=== PATIENT | female | born 1960 | race Asian ===

== ENCOUNTER 2017-08-12 08:34 | Emergency (ER) | payer OTHER ==
[~2017-08-12] VITALS: Ht 172.7 cm; Wt 54.4 kg
--- NOTE | 2017-08-12 09:04 | ED GI/GU/ABDOMINAL COMPLAINT ---
History of Present Illness General Chief Complaint: Abdominal Pain/Flank Pain Stated Complaint: LBP RADIATING TO ABD/RT SIDE Source: patient Exam Limitations: no limitations Vital Signs & Intake/Output Vital Signs & Intake/Output Vital Signs Date Time Temp Pulse Resp B/P B/P Pulse O2 O2 Flow FiO2 Mean Ox Delivery Rate 08/12 1325 98.3 68 20 122/68 99 Room Air 08/12 1045 98.0 65 18 117/67 100 Room Air 08/12 0837 97.8 78 18 133/94 98 Room Air Allergies Coded Allergies: No Known Allergies (08/12/17) Triage Note: 57 YEAR OLD FEMALE TO ER WITH COMPLAINTS OF R SIDE FLANK PAIN THAT RADIATES INTO HER ABD THAT HAS BEEN CONSTANT SINCE FRIDAY, TAKES ALEVE WIWTH LITTLE RELIEF, DENIES N/V/D/URINARY SYMPTOMS. PT HAS HISTORY OF STOMACH CANCER. Triage Nurses Notes Reviewed? yes ? N Is pt currently ? No Onset: Gradual Duration: day(s): Timing: recent history Quality/Severity: moderate Severity Numbers: 8 Location: right back Radiation: RLQ HPI: 57yo female with hx of gastric cancer s/p surgical excision 2014 and low back pain presents to ED complaining of right sided low back pain beginning on . Pain described as gradually worsening, worse with laying down and at night, radiating towards right abdomen, throbbing, 8/10. Patient states that this pain feels different than her usual low back pain. Patient denies fevers, chills, dysuria, hematuria, diarrhea, constipation, nausea, vomiting, changes in activity or exercise, fall. Patient follows up with her oncologist, Dr. Hwang, regarding her gastric cancer every 6 months, she last had a CT scan in February 2017 which was negative for metastasis. Past History Travel History Traveled to [place] past 21 day No Medical History Any Pertinent Medical History? see below for history Neurological: NONE EENT: NONE Cardiovascular: NONE Respiratory: NONE Gastrointestinal: NONE Hepatic: NONE Renal: NONE Musculoskeletal: NONE Psychiatric: NONE Endocrine: NONE Blood Disorders: NONE Cancer(s): STOMACH CANCER [employer]N/Reproductive: NONE Surgical History Surgical History: non-contributory Psychosocial History What is your primary language Armenian Tobacco Use: Never used ETOH Use: denies use Illicit Drug Use: denies illicit drug use Family History Hx Contributory? No Review of Systems Review of Systems Constitutional: Reports: no symptoms. EENTM: Reports: no symptoms. Respiratory: Reports: no symptoms. Cardiovascular: Reports: no symptoms. GI: Reports: see HPI. Genitourinary: Reports: no symptoms. Musculoskeletal: Reports: see HPI. Skin: Reports: no symptoms. Neurological/Psychological: Reports: no symptoms. Hematologic/Endocrine: Reports: no symptoms. Immunologic/Allergic: Reports: no symptoms. All Other Systems: Reviewed and Negative Physical Exam Physical Exam General Appearance: well developed/nourished, no apparent distress, alert, awake Head: atraumatic, normal appearance Eyes: Bilateral: normal appearance. Ears, Nose, Throat, Mouth: hearing grossly normal Neck: normal inspection, supple, full range of motion Respiratory: normal breath sounds, no respiratory distress, lungs clear Cardiovascular: regular rate/rhythm Gastrointestinal: normal bowel sounds, soft, no organomegaly, RUQ tenderness, no rebound or gaurding Back: normal inspection, normal range of motion, right sided back tenderness Extremities: normal range of motion Neurologic/Psych: awake, alert, oriented x 3 Skin: intact, normal color, warm/dry Core Measures ACS in differential dx? No Sepsis Present: No Sepsis Focused Exam Completed? No Progress Differential Diagnosis: appendicitis, bowel obstruction, colon cancer, cholecystitis, diverticulitis, gastritis, hernia, kidney stone, ovarian cyst, ovarian torsion, peptic ulcer, perforated viscous, SBO, malignancy/mass Plan of Care: Orders Procedure Date/time Status COMPREHENSIVE METABOLIC PANEL 08/12 0921 Complete CBC WITHOUT DIFFERENTIAL 08/12 0921 Complete URINALYSIS 08/12 0841 Complete Current Medications Sig/Jolanta Start time Last Medication Dose Stop Time Status Admin Acetaminophen 1,000 MG ONCE ONE 08/12 1145 CAN (Ofirmev) 08/12 1159 N/A 1 UNIT (No Carrier) Laboratory Tests 08/12/17 0952: Anion Gap 13, Estimated GFR > 60, BUN/Creatinine Ratio 36.0 H, Glucose 94, Calcium 9.1, Total Bilirubin 0.4, AST 27, ALT 45, Alkaline Phosphatase 78, Total Protein 6.9, Albumin 4.1, Globulin 2.8, Albumin/Globulin Ratio 1.5, CBC w Diff NO MAN DIFF REQ, RBC 3.92 L, MCV 89.9, MCH 29.6, RDW 13.6, MPV 8.1, Gran % 56.5 , Lymphocytes % 32.6, Monocytes % 7.4, Eosinophils % 2.9, Basophils % 0.6, Absolute Granulocytes 1.8, Absolute Lymphocytes 1.1 L, Absolute Monocytes 0.2, Absolute Eosinophils 0.1, Absolute Basophils 0, PUBS MCHC 32.9 L 08/12/17 0845: Urine Color YEL, Urine Clarity CLEAR, Urine pH 6.0, Ur Specific [place] >= 1.030 , Urine Protein 30 H, Urine Ketones NEG, Urine Nitrite NEG, Urine Bilirubin NEG @ICTO, Urine Urobilinogen 0.2, Ur Leukocyte Esterase NEG, Ur Microscopic SEDIMENT EXAMINED, Urine RBC RARE, Urine WBC RARE, Urine Crystals 1+ CA OX H, Urine Bacteria FEW H, Urine Mucus FEW, Urine Hemoglobin NEG, Urine Glucose NEG Spoke with radiologist regarding abnormal CT scan findings - multiple low density irregular lesions in liver, likely multiple hepatic metastasis. Prominent cysts in sacrum extending into right neuroforamen which may be responsible for right low back pain, recommend MRI for further evaluation. Pending page from patient's oncologist, Dr. Tiffany Hwang, from [facility]. Spoke with regarding this patient who recommends follow up with her oncologist. reviewed old image from [facility] which showed hepatic angiomas in 2015. Patient is clinically stable, can f/u as outpatient with [facility]. Dr. Mathias agrees with this plan. Spoke with sponge press operator from [facility] who agrees with plan for follow up in the office this week for comparison of CT scan findings from prior imaging and possible further imaging to rule out metastasis. Diagnostic Imaging: Viewed by Me: CT Scan. Discussed w/RAD: CT Scan. Radiology Impression: PATIENT: JOHNSON DIAL PRESENT AGE : 57 PATIENT ACCOUNT NO: [id number] : 62 LOCATION: [facility] ORDERING PHYSICIAN: Lucita ESPINOZA SERVICE DATE: 08/12/17 EXAM TYPE: CAT - CT ABD & PELVIS W/O IV CONTRAS EXAMINATION: CT ABDOMEN AND PELVIS WITHOUT CONTRAST CLINICAL INFORMATION: History of gastric cancer, rule out kidney stone hydronephrosis or mass. Patient presenting with right back pain radiating to the abdomen. COMPARISON: There are no prior studies available for comparison at this time. TECHNIQUE: Multidetector volumetric imaging was performed from the superior aspect of the liver through the pubic symphysis. Sagittal and coronal reformatted images were obtained on the technologist's workstation. DLP: 275.53 mGy-cm FINDINGS: LUNG BASES: The visualized lung bases are unremarkable. LIVER, GALLBLADDER, AND BILIARY TREE: There are multiple hypoattenuating mass lesions present throughout the liver which are irregular in shape, the largest is in the right lobe extending inferiorly from the dome of the liver measuring 4.8 cm in longest dimension, however there are numerous lesions ranging in size from subcentimeter to the largest lesion described, and are diffusely present throughout the hepatic parenchyma. Although the gallbladder is unremarkable, the common bile duct appears enlarged measuring 1.2 cm in diameter, at the level of the duodenum. The common hepatic duct and intrahepatic ducts are also dilated, with the common hepatic duct measuring 1.1 cm in diameter. The pancreatic duct is normal in caliber. PANCREAS: Normal in appearance. SPLEEN: Normal. ADRENAL GLANDS: Normal. KIDNEYS AND URETERS: The kidneys are normal in size, shape, and attenuation. No hydronephrosis, hydroureter, or calculi seen. No perinephric stranding. BLADDER: Normal, no bladder calculi are noted.. GASTROINTESTINAL TRACT: Postoperative changes are present in the gastric region and region of the anterior central upper abdomen at the margin of the colon, however not involving the duodenum. The small and large bowel are unremarkable. The appendix is unremarkable. ABDOMINAL WALL: No significant hernia is appreciated. LYMPH NODES: No pathologically enlarged lymph nodes, the sensitivity is slightly limited due to lack of IV contrast. VASCULAR: Unremarkable. PELVIC VISCERA: Normal appearance of the uterus, which is retroverted, there are no adnexal mass lesions. OSSEOUS STRUCTURES: No aggressive or focal osseous lesions are noted. However, there is a fluid density structure extending along the posterior margin of the first and second sacral segments and extending into the right neural foramen, this is likely rental representative of a prominent Tarlov cyst. The mass effect and close proximity to the right nerve root could be contributing to the presenting symptom. IMPRESSION: 1. Multiple irregularly-shaped hypodense mass lesions present diffusely distributed throughout the liver, these are not fluid density by Hounsfield units. In consideration of the patient's prior history of gastric cancer, the lesions are concerning for hepatic metastatic disease. Consider PET/CT for confirmation if clinically indicated. 2. Prominent intra and extrahepatic ductal dilation, extending to the distal common bile duct, without apparent involvement of the pancreatic duct., The finding is possibly secondary to the multiple hepatic mass lesions. 3. Postoperative changes in the gastric region, no definite upper abdominal lymphadenopathy is noted, however the sensitivity is limited without presence of IV contrast. 4. No renal, ureteral or bladder calculi are noted throughout the study. 5. 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 If clinically indicated, MRI could be considered for further evaluation/ confirmation. The findings were discussed in detail with the referring physician , OLGA Hylton, at the time of the study on 08/12/2017, at 11:26 am. DICTATED BY: Klarissa Duarte MD DATE/TIME DICTATED:08/12/171043 BLANKET CUTTER HAND:YUN DATE/TIME TRANSCRIBED:08/12/171043 CONFIDENTIAL, DO NOT COPY WITHOUT APPROPRIATE AUTHORIZATION. <Electronically signed in Other Vendor System> SIGNED BY: Klarissa Duarte MD 08/12/17 1132 Initial ED EKG: none Departure Departure Disposition: HOME OR SELF CARE Condition: Stable Clinical Impression Primary Impression: Back pain Qualifiers: Back pain location: low back pain Chronicity: acute Back pain laterality: right Sciatica presence: without sciatica Qualified Code: M54.5 - Low back pain Secondary Impressions: Hepatic lesion Referrals: Jeevan HORTA,Placido Wong (PCP/Family) Additional Instructions: As discussed, follow-up with your oncologist this week. Bring copy of CT scan disc so they can compare to your prior CT scans. Take ibuprofen or Tylenol as prescribed as needed for pain. Return to the emergency department with worsening symptoms or other concerns. Please note that there might be incidental findings in your evaluation that are unrelated to the current emergency department visit. Please notify your primary care doctor about this emergency department visit in order to obtain and review all of the testing performed so that these incidental findings can be monitored as needed. If you had an x-ray performed, please understand that some fractures may not be seen on the initial set of x-rays. If your symptoms persist you might need a repeat set of x-rays to check for such a fracture. If you had a laceration evaluated, please understand that foreign bodies such as glass or wood may not be visible to the naked eye or on plain x-rays. If the wound becomes red, swollen, increasingly more painful or if there is any drainage from the wound, please have it reevaluated by a physician for the possibility of a retained foreign body. If you're unable to follow up as outlined in the discharge instructions please return to the emergency department. Thank you for choosing the [facility] Emergency Department for your care. It was a pleasure to serve you today. Departure Forms: Customer Survey General Discharge Information
[2017-08-12 10:00] LABS: ABSOLUTE BASOPHIL COUNT 0 /CUMM (0.0-0.2); ABSOLUTE EOSINOPHIL COUNT 0.1 /CUMM (0.0-0.7); ABSOLUTE GRANULOCYTE CT 1.8 /CUMM (1.4-6.5); ABSOLUTE LYMPH COUNT 1.1 /CUMM (1.2-3.4); ABSOLUTE MONOCYTE COUNT 0.2 /CUMM (0.10-0.60); BASOPHIL % 0.6 % (0.0-2.0); EOSINOPHIL % 2.9 % (0-5); GRANULOCYTE % 56.5 % (42.2-75.2); HEMATOCRIT 35.3 % (37-47); MEAN CORPUSCULAR HGB 29.6 PG (27.0-31.0); MEAN CORPUSCULAR HGB CONC 32.9 G/DL (33.0-37.0); MEAN CORPUSCULAR VOLUME 89.9 FL (81.0-99.0); MEAN PLATELET VOLUME 8.1 FL (7.4-10.4); PLATELET COUNT 223 /CUMM (130-400); RBC DISTRIBUTION WIDTH 13.6 % (11.5-14.5); RED BLOOD CELL CT 3.92 /CUMM (4.20-5.40); WHITE BLOOD CELL COUNT 3.3 /CUMM (4.8-10.8)
--- NOTE | 2017-08-12 11:32 | CT SCAN REPORT ---
EXAMINATION: CT ABDOMEN AND PELVIS WITHOUT CONTRAST CLINICAL INFORMATION: History of gastric cancer, rule out kidney stone hydronephrosis or mass. Patient presenting with right back pain radiating to the abdomen. COMPARISON: There are no prior studies available for comparison at this time. TECHNIQUE: Multidetector volumetric imaging was performed from the superior aspect of the liver through the pubic symphysis. Sagittal and coronal reformatted images were obtained on the technologist's workstation. DLP: 275.53 mGy-cm FINDINGS: LUNG BASES: The visualized lung bases are unremarkable. LIVER, GALLBLADDER, AND BILIARY TREE: There are multiple hypoattenuating mass lesions present throughout the liver which are irregular in shape, the largest is in the right lobe extending inferiorly from the dome of the liver measuring 4.8 cm in longest dimension, however there are numerous lesions ranging in size from subcentimeter to the largest lesion described, and are diffusely present throughout the hepatic parenchyma. Although the gallbladder is unremarkable, the common bile duct appears enlarged measuring 1.2 cm in diameter, at the level of the duodenum. The common hepatic duct and intrahepatic ducts are also dilated, with the common hepatic duct measuring 1.1 cm in diameter. The pancreatic duct is normal in caliber. PANCREAS: Normal in appearance. SPLEEN: Normal. ADRENAL GLANDS: Normal. KIDNEYS AND URETERS: The kidneys are normal in size, shape, and attenuation. No hydronephrosis, hydroureter, or calculi seen. No perinephric stranding. BLADDER: Normal, no bladder calculi are noted.. GASTROINTESTINAL TRACT: Postoperative changes are present in the gastric region and region of the anterior central upper abdomen at the margin of the colon, however not involving the duodenum. The small and large bowel are unremarkable. The appendix is unremarkable. ABDOMINAL WALL: No significant hernia is appreciated. LYMPH NODES: No pathologically enlarged lymph nodes, the sensitivity is slightly limited due to lack of IV contrast. VASCULAR: Unremarkable. PELVIC VISCERA: Normal appearance of the uterus, which is retroverted, there are no adnexal mass lesions. OSSEOUS STRUCTURES: No aggressive or focal osseous lesions are noted. However, there is a fluid density structure extending along the posterior margin of the first and second sacral segments and extending into the right neural foramen, this is likely farm loan representative of a prominent Tarlov cyst. The mass effect and close proximity to the right nerve root could be contributing to the presenting symptom. IMPRESSION: 1. Multiple irregularly-shaped hypodense mass lesions present diffusely distributed throughout the liver, these are not fluid density by Hounsfield units. In consideration of the patient's prior history of gastric cancer, the lesions are concerning for hepatic metastatic disease. Consider PET/CT for confirmation if clinically indicated. 2. Prominent intra and extrahepatic ductal dilation, extending to the distal common bile duct, without apparent involvement of the pancreatic duct., The finding is possibly secondary to the multiple hepatic mass lesions. 3. Postoperative changes in the gastric region, no definite upper abdominal lymphadenopathy is noted, however the sensitivity is limited without presence of IV contrast. 4. No renal, ureteral or bladder calculi are noted throughout the study. 5. 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 If clinically indicated, MRI could be considered for further evaluation/confirmation. The findings were discussed in detail with the referring physician, OLGA Hylton, at the time of the study on 08/12/2017, at 11:26 am.
[2017-08-12 13:25] VITALS: BP 122/68
== END 2017-08-12 13:30 ==
LOC: ERH 08:34
PROVIDERS: Physician Assistant
DX: K76.9 Liver disease, unspecified (principal)
CPT/HCPCS: 74176; 81001; J0131